=== PATIENT | female | born 1995 | race Caucasian/White ===

== ENCOUNTER 2020-08-09 10:59 | Emergency (ER) | payer MEDICAID ==
[~2020-08-09] VITALS: Ht 162.6 cm; Wt 56.7 kg
[2020-08-09 11:06] VITALS: BP_SYST 126
[2020-08-09] MEDS ORDERED: LIDOCAINE 1%, 20 ML MDV 20 ML ONE (11:23)
[2020-08-09] MEDS ORDERED: BACITRACIN 1 GM OINT TP ONE (11:30)
[2020-08-09] MEDS ORDERED: LIDOCAINE 1% 10 MG/ML, 20 ML MDV INJ ONE (11:30)
[2020-08-09] MEDS ORDERED: KETOROLAC TROMETHAMINE 60 MG/2 ML VIAL IM ONE (11:45)
[2020-08-09] MEDS ORDERED: DIPH-TET-PERTUS Vaccine 0.5 ML VIAL (ADACEL) I.M. ONE (11:45)
[2020-08-09] MEDS ORDERED: IBUP-1969 PO (12:18)
[2020-08-09 12:23] VITALS: BP_SYST 126
== END 2020-08-09 12:24 | disposition home or self-care (01) ==
LOC: SED 10:59
DX: S01.81XA Laceration without foreign body of other part of head, initial encounter (principal); W18.39XA Other fall on same level, initial encounter; Y93.89 Activity, other specified; Y92.89 Other specified places as the place of occurrence of the external cause; Y99.8 Other external cause status
CPT/HCPCS: 12013; 90471; 90715; 96372; 99284; J1885; J2001